=== PATIENT | female | born 1990 | race Caucasian/White ===

== ENCOUNTER 2017-03-06 21:41 | Observation (INO) | payer BC ==
[~2017-03-06 21:41] MED LIST: FEOSOL325 M1 PO; IBUPROFEN600 M1 PO; PROGESTERONE200 M1 PO; [UNRECOGNIZED DRUG - OTHER] PO
[2017-03-07] MEDS ORDERED: FERREX 150150 M1 PO (00:04)
[2017-03-07] MEDS ORDERED: FISH OIL 11000 MG/CA PO (00:04)
[2017-03-07] MEDS ORDERED: PRENATAL VITAM1 EAC7 PO (00:05)
[2017-03-07] MEDS ORDERED: CALCIUM + D3 E1 EAC2 PO (00:05)
== END 2017-03-07 02:50 ==
LOC: LDR 21:41
PROVIDERS: ADMIT Family Medicine
DX: O47.1 False labor at or after 37 completed weeks of gestation (principal); Z3A.39 39 weeks gestation of pregnancy; Z79.899 Other long term (current) drug therapy; Z98.890 Other specified postprocedural states
CPT/HCPCS: G0378; G0379

== ENCOUNTER 2017-03-12 19:25 | Inpatient (IN) | payer BC ==
[~2017-03-12 19:25] MED LIST changes: +CALCIUM + D3 E1 EAC2 PO; +FERREX 150150 M1 PO; +FISH OIL 11000 MG/CA PO; +PRENATAL VITAM1 EAC7 PO
[2017-03-12] MEDS ORDERED: VITAMIN D31000 UNI3 (19:45)
[2017-03-14 08:25] LABS: BASO % 0.3 % (0-2); EOS % 1.4 % (0-7); EOSINOPHIL ABSOLUTE COUNT 0.2 tho/cmm (0.0-0.7); HCT-HEMATOCRIT 31.6 % (34.0-49.0); HGB-HEMOGLOBIN 10.3 gm/dl (12.0-15.5); LYMPH % 21.4 % (20-45); LYMPH ABSOLUTE COUNT 2.3 tho/cmm (0.8-4.5); MCH (MEAN CORPUSCULAR HGB) 30.6 pg (28.0-32.0); MCHC MEAN CORPUSCULAR HGB CONC 32.6 % (32.0-36.0); MCV (MEAN CELL VOLUME) 93.8 fl (82.0-96.0); MEAN PLATELET VOLUME 11.4 cmc (9.4-12.4); MONOCYTE ABSOLUTE COUNT 0.7 tho/cmm (0.0-1.2); NEUTROPHIL ABSOLUTE COUNT 7.6 tho/cmm (1.6-8.0); NEUTROPHIL-AUTOMATED 7.6 tho/cmm (1.6-8.0); NEUTROPHILS % 70.9 % (40-80); PLATELET COUNT 175 tho/cmm (150-450); RED BLOOD COUNT 3.37 mil/cmm (4.00-5.20); RED CELL DISTRIBUTION WIDTH 13.3 % (12.4-16.4); WHITE BLOOD COUNT 10.8 tho/cmm (4.0-10.0)
[2017-03-14] MEDS ORDERED: IBUPROFEN800 M1 PO (10:15)
== END 2017-03-14 13:40 | DRG 775 ==
LOC: LDR 19:25 → OBGE 03-13 00:04
PROVIDERS: ADMIT Family Medicine
PROC: 10E0XZZ Delivery of Products of Conception, External Approach (ICD-10-PCS; principal; 2017-03-12)
PROC: 0KQM0ZZ Repair Perineum Muscle, Open Approach (ICD-10-PCS; 2017-03-12)
DX: O99.02 Anemia complicating childbirth (principal); O70.1 Second degree perineal laceration during delivery; Z3A.40 40 weeks gestation of pregnancy; Z37.0 Single live birth; O34.219 Maternal care for unspecified type scar from previous cesarean delivery
CPT/HCPCS: J2590